=== PATIENT | male | born 1995 | race African-American/Black ===

== ENCOUNTER 2022-02-27 02:47 | Emergency (ER) | payer OTHER ==
[~2022-02-27] VITALS: Ht 167.6 cm; Wt 86.2 kg
[2022-02-27 03:04] VITALS: BP 122/78
--- NOTE | 2022-02-27 03:04 | NUR ---
BIBSELF FROM HOME C/O BACK PAIN X4 DAYS. -N/V/D. -TRAUMA OR INJURY. PT A/OX4. A/OX4. TOLERATING R/A WELL WITH NO RESP DISTRESS. AMB WITH STEADY GAIT. SAFETY MEASURES IN PLACE.
--- NOTE | 2022-02-27 03:13 | NUR ---
URINE COLLECTED AND SENT TO LAB
[2022-02-27] MEDS ORDERED: CYCL10TA9 PO (03:19)
== END 2022-02-27 03:21 | disposition home or self-care (01) ==
LOC: ER 02:51
DX: M62.830 Muscle spasm of back (principal); M54.30 Sciatica, unspecified side; F17.200 Nicotine dependence, unspecified, uncomplicated; Z60.2 Problems related to living alone; Z79.899 Other long term (current) drug therapy